=== PATIENT | female | born 1945 | race Caucasian/White ===

== ENCOUNTER 2021-02-24 20:16 | Emergency (ER) | payer MEDICARE ==
[~2021-02-24] VITALS: Ht 170.2 cm; Wt 65.8 kg
--- NOTE | 2021-02-24 20:30 | NUR ---
Pt here for abdominal pain. Pt. a&ox4. Pt. from [place], visiting family. Denies N/V/D.
[2021-02-24] MEDS ORDERED: HYDROMORPHONE 1 MG/1 ML DISP.SYRIN IV ONE (20:45)
[2021-02-24] MEDS ORDERED: ONDANSETRON 4 MG/2 ML VIAL IV ONE ×2 (20:45→22:30)
[2021-02-24 20:53] LABS: HEMATOCRIT 36.7 % (31.2-41.9); MEAN CORPUSCULAR HEMOGLOBIN 30.5 uug (24.7-32.8); MEAN CORPUSCULAR VOLUME 90.7 fL (75.5-95.3); PLATELET COUNT (AUTO) 194 K/uL (179-408)
[2021-02-24 21:02] LABS: BILIRUBIN,DIRECT 0.1 mg/dL (0.0-0.2); BILIRUBIN,TOTAL 0.4 mg/dL (0.2-1.0); CREATININE 0.8 mg/dL (0.6-1.3); POTASSIUM 3.4 mmol/L (3.5-5.1); TOTAL PROTEIN, SERUM 6.8 g/dL (6.4-8.2)
[2021-02-24] MEDS ORDERED: HYDROMORPHONE 1 MG/1 ML DISP.SYRIN ONE (21:02)
[2021-02-24] MEDS ORDERED: ONDANSETRON 4 MG/2 ML VIAL ONE ×2 (21:02→22:06)
[2021-02-24] MEDS ORDERED: IV NORMAL SALINE 250 ML IV ONE (21:25)
[2021-02-24] MEDS ORDERED: IOHEXOL 300MG/ML 100 ML INFUS..BTL ONE (21:25)
[2021-02-24] MEDS ORDERED: SWABABLE VALVE TRANSFER SET EA MC ONE (21:25)
--- NOTE | 2021-02-24 21:42 | NUR ---
Pt taken to ct
[2021-02-24] MEDS ORDERED: APIX5TAB PO (21:43)
[2021-02-24] MEDS ORDERED: LEVO50TA8 PO (21:43)
[2021-02-24] MEDS ORDERED: METOPROLOL ER PO (21:43)
[2021-02-24] MEDS ORDERED: ATOR20TA PO (21:43)
[2021-02-24] MEDS ORDERED: NITR0.4T SL (21:43)
[2021-02-24] MEDS ORDERED: diphenhydrAMINE 50 MG/1 ML VIAL ONE (22:25)
[2021-02-24] MEDS ORDERED: METOCLOPRAMIDE HCL 10 MG/2 ML VIAL ONE (22:25)
[2021-02-24] MEDS ORDERED: METOCLOPRAMIDE HCL 10 MG/2 ML VIAL IV ONE (22:30)
[2021-02-24] MEDS ORDERED: diphenhydrAMINE 50 MG/1 ML VIAL IV ONE (23:00)
[2021-02-24 23:08] LABS: *BILIRUBIN,URIN NEGATIVE (NEGATIVE); *BLOOD, URINE 2+ (NEGATIVE); *CLARITY,URINE CLEAR (CLEAR); *COLOR,URINE YELLOW (YELLOW); *KETONES,URINE NEGATIVE (NEGATIVE); *UROBILINOGEN,URINE 0.2 E.U./dl (NORMAL); LEUKOCYTE ESTERASE ,URINE TRACE (NEGATIVE); NITRITE, URINE NEGATIVE (NEGATIVE); UGLUCOSE NEGATIVE (NEGATIVE)
[2021-02-24 23:19] LABS: BACTERIA,URINE NONE SEEN /HPF (NONE SEEN); SQUAMOUS EPITHELIAL CELL,UR FEW /HPF (NONE SEEN); WBC,URINE 0-3 /HPF (0-3)
--- NOTE | 2021-02-24 23:35 | NUR ---
Patient does not wish to proceed with medical care recommended by Dr. Meier. Patient given information related to possible complications, up to and including , which could occur as a result of leaving the hospital at this time. Patient verbalizes understanding of risks involved due to leaving against medical advice. Patient has signed AMA form.
[2021-02-24] MEDS ORDERED: HYDR-4209 PO (23:38)
[2021-02-24] MEDS ORDERED: ONDA4TAB5 PO (23:38)
== END 2021-02-24 23:45 | disposition left against medical advice (07) ==
LOC: ER 20:19
DX: R10.9 Unspecified abdominal pain (principal); R31.29 Other microscopic hematuria; E78.5 Hyperlipidemia, unspecified; Z79.01 Long term (current) use of anticoagulants; Z79.899 Other long term (current) drug therapy; E03.9 Hypothyroidism, unspecified; Z79.890 Hormone replacement therapy; R11.2 Nausea with vomiting, unspecified; R94.31 Abnormal electrocardiogram [ECG] [EKG]; R03.0 Elevated blood-pressure reading, without diagnosis of hypertension; Z90.49 Acquired absence of other specified parts of digestive tract; Z53.29 Procedure and treatment not carried out because of patient's decision for other reasons
CPT/HCPCS: 36415; 71045; 74177; 80048; 80076; 81001; 83690; 84484; 85025; 85730; 93005; 96374; 96375; 96376; 99285; J1170; J1200; J2405 ×2; J2765; Q9967; 70030-TC; A4663; J7050